=== PATIENT | female | born 1990 | race Caucasian/White ===

== ENCOUNTER 2017-06-24 22:08 | Emergency (ER) | payer SELFPAY ==
[~2017-06-24] VITALS: Ht 167.6 cm; Wt 49.9 kg
--- NOTE | 2017-06-24 22:18 | NUR ---
DEAN GOMEZ AT BEDSIDE FOR EVAL. PT REFUSED CARE. RISK AND BENEFITS EXPLAINED X3. PT STRONLY REFUSED. PER PT STATES FATHER IS ON THE WAY.
[2017-06-24 22:20] VITALS: BP 135/70
--- NOTE | 2017-06-24 22:20 | NUR ---
PT BIBA#[id number] PT WAS FOUND PASSED OUT AND STATES SHE TOOK 1 PERCOCET AND DRANK 4 DRINKS TONIGHT PER PT, PT BEING COMBATIVE REFUSING TEMP. PT AOX3 RR EVEN AND UNLABORED. NO SOB NOTED. NAD NOTED. NO NVD AT THIS TIME. WAITING FOR MD FERRARO. PT REFUSED CARE AT THIS TIME. DEAN GOMEZ MADE AWARE.
--- NOTE | 2017-06-24 22:27 | NUR ---
JUANITO GOMEZ AT BEDSIDE SPEAKING TO PARENTS.
[2017-06-24] MEDS ORDERED: IV NS 0.9% 1,000 ML BAG IV ONE (22:30)
--- NOTE | 2017-06-24 22:46 | NUR ---
IV removed. Catheter intact and site benign. Pressure and 4x4 applied to site. No bleeding noted. Patient discharged to home in stable condition. Written and verbal after care instructions given. Patient verbalizes understanding of instruction. ambulatory with a steady gait. accompanied by parents.
== END 2017-06-24 22:53 | disposition home or self-care (01) ==
LOC: ER 22:09
DX: F10.129 Alcohol abuse with intoxication, unspecified (principal)
CPT/HCPCS: A4606; Z7610